=== PATIENT | female | born 1985 | race American Indian/Alaskan Native ===

== ENCOUNTER 2018-08-05 18:03 | Emergency (ER) | payer BC ==
--- NOTE | 2018-08-05 18:17 | Emergency Department Report ---
Blank Doc - Documentation Documentation: This is a 32-year-old female that presents vaginal bleeding. Stated is about 9 weeks. This initial assessment/diagnostic orders/clinical plan/treatment(s) is/are subject to change based on patient's health status, clinical progression and re- assessment by fellow clinical providers in the ED. Further treatment and workup at subsequent clinical providers discretion. Patient/guardians urged not to elope from the ED as their condition may be serious if not clinically assessed and managed. Initial orders include: 1- Patient sent to [facility] for further evaluation and treatment 2- labs 3- US OB 4- UA
[2018-08-05 19:28] LABS: Basophils % (Auto) 0.5 % (0.0-1.8); Eosinophils # (Auto) 0.1 K/mm3 (0.0-0.4); Eosinophils % (Auto) 0.9 % (0.0-4.3); Hematocrit 33.4 % (30.3-42.9); Hemoglobin 11.3 gm/dl (10.1-14.3); Lymphocytes % (Auto) 17.5 % (13.4-35.0); Mean Corpuscular HGB Conc 34 % (30-34); Mean Corpuscular Volume 85 fl (79-97); Monocytes # (Auto) 0.5 K/mm3 (0.0-0.8); Monocytes % (Auto) 7.9 % (0.0-7.3); Platelet Count 360 K/mm3 (140-440); Red Blood Count 3.94 M/mm3 (3.65-5.03); Red Cell Distribution Width 18.2 % (13.2-15.2)
[2018-08-05 20:21] LABS: Alanine Aminotransferase 6 units/L (7-56); Albumin 3.9 g/dL (3.9-5); BUN/Creatinine Ratio 12; Blood Urea Nitrogen 6 mg/dL (7-17); Calcium 9.8 mg/dL (8.4-10.2); Hemolysis Index 2
[2018-08-05 20:22] LABS: Bilirubin,Direct < 0.2 mg/dL (0-0.2)
[2018-08-05 21:19] LABS: Bilirubin,Urine NEG (Negative); Blood,Urine LG (Negative); Color,Urine Yellow (Yellow); Hyaline Casts,Urine 1 /LPF; Mucus,Urine 1+ /HPF; Protein,Urine <15 mg/dL mg/dL (Negative); Urobilinogen,Urine < 2.0 mg/dL (<2.0)
--- NOTE | 2018-08-05 21:59 | Ultrasound Report ---
PROCEDURE: US OB <= 14 WEEKS FETUS TECHNIQUE: Real-time transabdominal and transvaginal sonography of the uterus, placenta, amniotic fl uid, adnexa, and fetus was performed with image documentation. Measurements were obtained to determin e age/size. M-mode Doppler was used to document heartbeat. ADDITIONAL GESTATION: None. HISTORY: bleeding COMPARISONS: None . FINDINGS: Yolk Sac: 0.1 cm . Embryonic Cardiac Activity: Not identified . Gestational Sac: Mean sac diameter 2.4 cm, 7 weeks 3 days Placenta: Not visualized Amniotic fluid: Appropriate for gestational age. Cervix: Normal. Right Ovary: 4.4 x 3.8 x 1.7 cm . Left Ovary: 2.2 x 2.1 x 2.0 cm . Estimated delivery date: . Uterus: Enlarged measuring 17.5 x 11.3 x 10.7 cm. There are 3 heterogeneous masses consistent with fi broids measuring 8.4 cm, 7.0 cm, and 7.6 cm IMPRESSION: Intrauterine gestational sac with yolk sac. There is no pole nor cardiac activity. Uterine fibroids. This document is electronically signed by Richar Engel MD., August 05 2018 09:57:09 PM ET
--- NOTE | 2018-08-05 22:29 | Emergency Department Report ---
ED Female HPI - General Chief complaint: Vaginal Bleeding Stated complaint: 9WKS /BLEEDING Time Seen by Provider: 08/05/18 18:12 Source: patient Mode of arrival: Ambulatory Limitations: No Limitations - History of Present Illness MD Complaint: vaginal bleeding, vaginal discharge -: Sudden, days(s) (2) Location: other (Vaginal) Radiation: non-radiating Severity: moderate Severity scale (0 -10): 5 Quality: dull Consistency: constant Improves with: none Worsens with: none Are you Now?: Yes Last Menstrual Period: 06/13/18 EDC: 03/20/19 Associated Symptoms: vaginal bleeding. denies: vaginal discharge, abdominal pain, nausea/vomiting, fever/chills, headaches, loss of appetite, dysuria, hematuria, seizure, shortness of breath, syncope, weakness - Related Data Sexually active: Yes : 2 Para: 0 A: 1 Allergies Allergy/AdvReac Type Severity Reaction Status Date / Time No Known Allergies Allergy Unverified 08/05/18 18:08 ED Review of Systems ROS: Stated complaint: 9WKS /BLEEDING Other details as noted in HPI Comment: All other systems reviewed and negative Constitutional: denies: chills, fever Eyes: denies: eye pain, eye discharge, vision change ENT: denies: ear pain, throat pain Respiratory: denies: cough, shortness of breath, wheezing Cardiovascular: denies: chest pain, palpitations Endocrine: no symptoms reported Gastrointestinal: denies: abdominal pain, nausea, diarrhea Genitourinary: discharge, other (Vaginal bleeding). denies: urgency, dysuria Musculoskeletal: denies: back pain, joint swelling, arthralgia Skin: denies: rash, lesions Neurological: denies: headache, weakness, paresthesias Psychiatric: denies: anxiety, depression Hematological/Lymphatic: denies: easy bleeding, easy bruising ED Past Medical Hx - Past Medical History Previous Medical History?: No - Surgical History Past Surgical History?: Yes Hx Breast Surgery: Yes (Right breast lumpectomy) - Social History Smoking Status: Never Smoker Substance Use Type: None ED Physical Exam - General Limitations: No Limitations General appearance: alert, in no apparent distress - Head Head exam: Present: atraumatic, normocephalic, normal inspection - Eye Eye exam: Present: normal appearance, PERRL, EOMI. Absent: scleral icterus, conjunctival injection, nystagmus Pupils: Present: normal accommodation - ENT ENT exam: Present: normal exam, normal orophraynx, mucous membranes moist, TM's normal bilaterally, normal external ear exam - Neck Neck exam: Present: normal inspection, full ROM - Respiratory Respiratory exam: Present: normal lung sounds bilaterally. Absent: respiratory distress, wheezes, rales, rhonchi, stridor, chest wall tenderness, accessory muscle use, decreased breath sounds, prolonged expiratory - Cardiovascular Cardiovascular Exam: Present: regular rate, normal rhythm, normal heart sounds. Absent: systolic murmur, diastolic murmur, rubs, gallop - GI/Abdominal GI/Abdominal exam: Present: soft, normal bowel sounds. Absent: tenderness - Rectal Rectal exam: Present: deferred - External exam: Present: normal external exam Speculum exam: Present: normal speculum exam, vaginal bleeding - Extremities Exam Extremities exam: Present: normal inspection, full ROM, normal capillary refill - Back Exam Back exam: Present: normal inspection, full ROM. Absent: tenderness, CVA tenderness (L), muscle spasm - Neurological Exam Neurological exam: Present: alert, oriented X3, CN II-XII intact, normal gait, reflexes normal - Psychiatric Psychiatric exam: Present: normal affect, normal mood - Skin Skin exam: Present: warm, dry, intact, normal color. Absent: rash ED Course Vital Signs 08/05/18 18:08 Temperature 98.8 F Pulse Rate 121 H Respiratory 20 Rate Blood Pressure 111/72 O2 Sat by Pulse 99 Oximetry - Reevaluation(s) Reevaluation #1: 08/05/18 22:28 Patient is alert and oriented 3 and is not in distress but tachycardic in triage. Lab test results were reviewed and are unremarkable except for a urinalysis that showed large amount of blood. [place] Quant [place] [id number]. The transvaginal and complete pelvic ultrasound showed an enlarged uterus measuring 17.5 cm x 11.3 cm x 10.7 cm. There are 3 heterogenous mass is consistent with fibroids measuring 8.4 cm, 7.0 cm and 7.6 cm. There a IUP with a gestational sac and yolk sac are present but there is no pole or cardiac activity appreciated in the ultrasound. The IUP and the decision sac at approximately 7 weeks and 3 days. These findings and the implications were explained to the patient. Patient was advised to maintain complete pelvic rest and to either return to the ED or to her [employer] physician in 48 hours for repeat serial hCG Quant studies to ascertain viability of the based on these ultrasound findings. The vitals were stable upon discharge with tachycardia having resolved. 08/05/18 22:38 ED Medical Decision Making - Lab Data Result diagrams: 08/05/18 18:56 08/05/18 20:04 - Radiology Data Radiology results: report reviewed, image reviewed he transvaginal and complete pelvic ultrasound showed an enlarged uterus measuring 17.5 cm x 11.3 cm x 10.7 cm. There are 3 heterogenous mass is consistent with fibroids measuring 8.4 cm, 7.0 cm and 7.6 cm. There a IUP with a gestational sac and yolk sac are present but there is no pole or cardiac activity appreciated in the ultrasound. The IUP and the decision sac at approximately 7 weeks and 3 days. - Medical Decision Making Patient is alert and oriented 3 and is not in distress but tachycardic in triage. Lab test results were reviewed and are unremarkable except for a urinalysis that showed large amount of blood. [place] hCG Quant was [id number]. The transvaginal and complete pelvic ultrasound showed an enlarged uterus measuring 17.5 cm x 11.3 cm x 10.7 cm. There are 3 heterogenous mass is consistent with fibroids measuring 8.4 cm, 7.0 cm and 7.6 cm. There a IUP with a gestational sac and yolk sac are present but there is no pole or cardiac activity appreciated in the ultrasound. The IUP and the decision sac at approximately 7 weeks and 3 days. These findings and the implications were explained to the patient. Patient was advised to maintain complete pelvic rest and to either return to the ED or to her [employer] physician in 48 hours for repeat serial hCG Quant studies to ascertain viability of the based on these ultrasound findings. The vital signs improved with tachycardia having resolved upon discharge - Differential Diagnosis Threatened miscarriage; Vaginal bleeding in , Uterine fibroids Critical care attestation.: If time is entered above; I have spent that time in minutes in the direct care of this critically ill patient, excluding procedure time. ED Disposition Clinical Impression: Threatened miscarriage in early , Uterine fibroid in , Vaginal bleeding in Disposition: TO HOME OR SELFCARE Is pt being admited?: No Does the pt Need Aspirin: No Condition: Stable Instructions: Threatened Miscarriage (ED), Uterine Fibroids (ED) Additional Instructions: Follow-up with your [facility] physician or return to the ED in 48 hours for repeat serial hCG Quant studies. Maintain a complete pelvic rest. Return to the ED immediately if symptoms get worse. Forms: Work/School Release Form(ED) Time of Disposition: 22:37 Print Language: MOLDOV[place]
[2018-08-05 22:45] VITALS: BP 111/53
== END 2018-08-05 22:51 | disposition home or self-care (01) ==
LOC: ED 18:03
DX: O20.0 Threatened abortion (principal); O34.11 Maternal care for benign tumor of corpus uteri, first trimester; Z90.11 Acquired absence of right breast and nipple; Z3A.01 Less than 8 weeks gestation of pregnancy
CPT/HCPCS: 36415; 76801; 76817; 80048; 80076; 81001; 83690; 84702; 84703; 85025; 86850; 86900; 86901